=== PATIENT | male | born 1990 ===

== ENCOUNTER 2018-11-20 22:49 | Observation (INO) | payer OTHER ==
[~2018-11-20] VITALS: Ht 170.2 cm; Wt 68.0 kg
[2018-11-20 23:38] LABS: BASOPHILS ABSOLUTE AUTO 0.03 K/mm3 (0.00-0.23); BASOPHILS PERCENT AUTO 0 % (0-2); EOSINOPHILS ABSOLUTE AUTO 0.07 K/mm3 (0.00-0.68); EOSINOPHILS PERCENT AUTO 1 % (0-6); Hematocrit 48.5 % (37.0-53.0); Hemoglobin 16.7 g/dL (13.5-17.5); IMMATURE GRAN ABSOLUTE AUTO 0.02 K/mm3 (0.00-0.10); IMMATURE GRAN PERCENT AUTO 0 % (0-1); LYMPHOCYTES ABSOLUTE AUTO 3.07 K/mm3 (0.84-5.20); LYMPHOCYTES PERCENT AUTO 29 % (21-46); MONOCYTES ABSOLUTE AUTO 0.42 K/mm3 (0.16-1.47); MONOCYTES PERCENT AUTO 4 % (4-13); Mean Corpuscular HGB 32.6 pg (26.0-34.0); Mean Corpuscular HGB Conc 34.4 g/dL (31.5-36.5); Mean Corpuscular Volume 95 fL (80-100); Mean Platelet Volume 9.7 fL (9.1-12.4); NEUTROPHILS ABSOLUTE AUTO 6.83 K/mm3 (1.96-9.15); NEUTROPHILS PERCENT AUTO 65 % (41-73); Platelet Count 256 K/mm3 (150-400); RDW Coefficient Variation 12.9 % (11.7-14.2); RDW Standard Deviation 45.3 fL (35.1-46.3); Red Blood Cell Count 5.12 M/mm3 (4.30-5.90); White Blood Cell Count 10.44 K/mm3 (4.00-11.30)
[2018-11-21] LABS: Alanine Aminotransfer (ALT/SGP 30 U/L (12-78); Albumin, Blood 4.1 g/dL (3.4-5.0); Albumin/Globulin Ratio 1.1 (0.8-1.8); Alk Phos 132 U/L (50-136); Anion Gap 11 mmol/L (6-16); Aspartate Aminotrans (AST/SGOT 37 U/L (12-37); Bilirubin, Total 0.4 mg/dL (0.1-1.0); Blood Urea Nitrogen 6 mg/dL (8-24); Bun/Creatinine Ratio 8.7 (12.0-20.0); CO2, Blood 25 mmol/L (21-32); CPK Creatine Kinase 382 U/L (39-308); Calcium, Blood 8.2 mg/dL (8.5-10.1); Chloride, Blood 109 mmol/L (98-108); Creatinine, Blood 0.69 mg/dL (0.60-1.20); Globulin, Blood 3.7 g/dL (2.2-4.0); Glomerular Filtration Rate >60 (60-); Glucose, Blood 100 mg/dL (70-99); Sodium, Blood 145 mmol/L (136-145); Total Protein, Blood 7.8 g/dL (6.4-8.2)
[2018-11-21 00:08] LABS: Ethanol (Alcohol), Blood, Med 293 mg/dL
== END 2018-11-21 04:09 | disposition home or self-care (01) ==
LOC: ER 22:49 → EOR 22:50
PROVIDERS: ADMIT Emergency Medicine
DX: F10.129 Alcohol abuse with intoxication, unspecified (principal); T75.89XA Other specified effects of external causes, initial encounter; F12.90 Cannabis use, unspecified, uncomplicated
CPT/HCPCS: 80053; 82550; 83690; 85025; 99285; G0378; G0480

== ENCOUNTER 2018-11-25 17:12 | Emergency (ER) | payer OTHER ==
[~2018-11-25] VITALS: Ht 170.2 cm; Wt 65.8 kg
[2018-11-25 19:13] LABS: Automated BF RBC Count 0.315 M/mm3 (0-0); Body Fluid WBC Count 170060 /mm3 (0-999)
[2018-11-25 19:15] LABS: RBC Count, Body Fluid 315000 /mm3 (0-0)
[2018-11-25] MEDS ORDERED: CEPH500 PO (19:20)
[2018-11-25 20:02] LABS: Appearance, Body Fluid Viscous (Clear); Color, Body Fluid Brown (None-Yellow); Total Cell Count, Body Fluid 100
== END 2018-11-25 19:33 | disposition home or self-care (01) ==
LOC: ER 17:12
PROVIDERS: Emergency Medicine
DX: L72.3 Sebaceous cyst (principal)
CPT/HCPCS: 10160; 89051; 99283-25